=== PATIENT | male | born 1980 | race Caucasian/White ===

== ENCOUNTER 2019-02-09 02:24 | Emergency (ER) | payer SELFPAY ==
[2019-02-09] MEDS ORDERED: Morphine 2 MG/ML Syringe IVPUSH ONE (02:36)
[2019-02-09] MEDS ORDERED: Sodium Chloride 0.9% 2.5 ML Syringe FLUSH PRN (02:36)
[2019-02-09] MEDS ORDERED: Sodium Chloride 0.9% 1,000 ML IV ONE (02:36)
[2019-02-09] MEDS ORDERED: Ketorolac 30 MG/ML SDV IVPUSH ONE (02:36)
[2019-02-09] MEDS ORDERED: Sodium Chloride 0.9% 10 ML Syringe FLUSH PRN (02:36)
--- NOTE | 2019-02-09 02:42 | EDM.PDOC ---
ED HPI GENERAL MEDICAL PROBLEM - General Chief Complaint: Lower Extremity Injury/Pain Stated Complaint: PULLED MUSCLE Time Seen by Provider: 02/09/19 02:30 - History of Present Illness INITIAL COMMENTS - FREE TEXT/NARRATIVE: HISTORY AND PHYSICAL: History of present illness: The patient is a 38-year-old male with no stated medical history who says he was playing softball [employer] about 8 PM and he was running to first base when he felt a sudden pull in his right thigh area. He did not fall to the ground and in fact he said that did not even hurt very much and he continued playing the game until it was finished it was not until he went home that he noticed that his leg/I was getting swollen and he was getting more discomfort. As the night progressed he was having more significant discomfort and swelling and he did not take anything [id number] but he did try to place ice on it. The patient says that the pain is in the mid thigh area and it is not in the posterior thigh and it is not a bony pain but it feels like a bad pulled muscle. He has no bony knee leg ankle foot pain and no sensory changes or weakness in his leg. He is able to walk on it with a limp and there is discrete pain with that. He has no right hip pain no back pain and no other systemic complaints. The patient is on no anticoagulation therapy including aspirin Review of systems: As per history of present illness and below otherwise all systems reviewed and negative. Past medical history: As per history of present illness and as reviewed below otherwise noncontributory. Surgical history: As per history of present illness and as reviewed below otherwise noncontributory. Social history: No reported history of drug or alcohol abuse. Family history: As per history of present illness and as reviewed below otherwise noncontributory. Physical exam: General: Well-developed well-nourished man who is nontoxic and vital signs are noted by me HEENT: Atraumatic, normocephalic,, negative for conjunctival pallor or scleral icterus, mucous membranes moist, throat clear, neck supple, nontender, trachea midline. Lungs: Clear to auscultation, breath sounds equal bilaterally, chest nontender. Heart: S1S2, regular rhythm and subtly tachycardic rate on my evaluation and no overt murmurs Abdomen: Soft, nondistended, nontender. Negative for masses or hepatosplenomegaly. NABS Pelvis: Stable nontender. No lateral hip tenderness on the right Genitourinary: Deferred. Rectal: Deferred. Extremities: Atraumatic with full range of motion of all extremities with the exception of the right thigh area where there is discrete swelling to the quadriceps compartment in the medial and lateral areas with ecchymosis seen laterally and swelling noted in the prepatellar area of the knee. The medial compartment is soft without tenderness or gross swelling. There are no bony defects appreciated in the right lower extremity and patient can engage the hamstring without difficulty although there is discomfort in the anterior thigh and he can also engage the quadriceps albeit painful and slightly weaker. Dorsalis pedis and posterior tibial pulses are triphasic The legs are, negative for cords or calf pain. Neurovascular unremarkable. When I place the patient with legs dangling and passively flex and extend at the knee the patient says the pain is not significantly worse with either movement and it seems to be the same. Patient can straight leg rise on the right about 3 inches. Neuro: Awake, alert, oriented. Cranial nerves II through XII unremarkable. Cerebellum unremarkable. Motor and sensory unremarkable throughout. Exam nonfocal. Diagnostics: CBC CMP CPK x-ray of the right femur Therapeutics: IV fluids Toradol morphine crutches; knee immobilizer for comfort if patient chooses, [place] 0325: Case was discussed with Dr. Ware and she would like to see the patient this morning at 9 AM in our clinic. She agrees with no weightbearing and if the patient wants a knee immobilizer for comfort he can have one as he chooses. I will give the patient a [place] to go home and further pain management can be dictated by Dr. Ware. I've again stressed the need to ice and elevate until he has seen in the clinic and no weightbearing Impression: Right quadriceps injury Definitive disposition and diagnosis as appropriate pending reevaluation and review of above. right leg Pain Score (Numeric/FACES): 9 - Related Data Allergies Allergy/AdvReac Type Severity Reaction Status Date / Time No Known Allergies Allergy Verified 02/09/19 02:29 Home Meds: Home Meds . [No Known Home Meds] 02/09/19 [History] Past Medical History - Past Health History Medical/Surgical History: Denies Medical/Surgical History Cardiovascular History: Reports: None Respiratory History: Reports: None Gastrointestinal History: Reports: None Genitourinary History: Reports: None Musculoskeletal History: Reports: None Neurological History: Reports: None Psychiatric History: Reports: None Endocrine/Metabolic History: Reports: None Hematologic History: Reports: None Oncologic (Cancer) History: Reports: None Dermatologic History: Reports: None - Infectious Disease History Infectious Disease History: Reports: None Social & Family History - Family History Family Medical History: Noncontributory - Tobacco Use Smoking Status *Q: Current Every Day Smoker Years of Tobacco use: 20 Packs/Tins Daily: 1 - Recreational Drug Use Recreational Drug Use: No Review of Systems - Review of Systems Review Of Systems: ROS reveals no pertinent complaints other than HPI. ED EXAM, GENERAL - Physical Exam Exam: See Below (see dictation) Course - Vital Signs Last Recorded V/S: Last Vital Signs Temp 36.4 C 02/09/19 02:29 Pulse 88 02/09/19 03:21 Resp 18 02/09/19 03:21 BP 153/96 H 02/09/19 03:21 Pulse Ox 98 02/09/19 03:21 - Orders/Labs/Meds Orders: Active Orders 24 hr Category Date Time Status Femur Min 2V Rt [CR] Stat Exams 02/09/19 02:36 Taken Sodium Chloride 0.9% [Normal Saline] 1,000 ml Med 02/09/19 02:36 Active IV STAT Sodium Chloride 0.9% [Saline Flush] Med 02/09/19 02:36 Active 10 ml FLUSH ASDIRECTED PRN Sodium Chloride 0.9% [Saline Flush] Med 02/09/19 02:36 Active 2.5 ml FLUSH ASDIRECTED PRN DME for Discharge [COMM] Stat Oth 02/09/19 03:30 Ordered Saline Lock Insert [OM.PC] Stat Oth 02/09/19 02:35 Ordered Medication Orders Sodium Chloride (Normal Saline) 1,000 mls @ 999 mls/hr IV STAT ONE Stop: 02/09/19 03:36 Last Admin: 02/09/19 02:45 Dose: 999 mls/hr Sodium Chloride (Saline Flush) 10 ml FLUSH ASDIRECTED PRN PRN Reason: Keep Vein Open Sodium Chloride (Saline Flush) 2.5 ml FLUSH ASDIRECTED PRN PRN Reason: Keep Vein Open Labs: Laboratory Tests 02/09/19 02/09/19 Range/Units 02:35 02:35 WBC 13.26 H (4.0-11.0) K/uL RBC 4.01 L (4.50-5.90) M/uL Hgb 12.7 L (13.0-17.0) g/dL Hct 37.0 L (38.0-50.0) % MCV 92.3 (80.0-98.0) fL MCH 31.7 (27.0-32.0) pg MCHC 34.3 (31.0-37.0) g/dL RDW Std Deviation 42.5 (28.0-62.0) fl RDW Coeff of Rian 13 (11.0-15.0) % Plt Count 189 (150-400) K/uL MPV 9.40 (7.40-12.00) fL Neut % (Auto) 74.5 (48.0-80.0) % Lymph % (Auto) 17.6 (16.0-40.0) % [place] % (Auto) 7.4 (0.0-15.0) % Eos % (Auto) 0.3 (0.0-7.0) % Baso % (Auto) 0.2 (0.0-1.5) % Neut # (Auto) 9.9 H (1.4-5.7) K/uL Lymph # (Auto) 2.3 (0.6-2.4) K/uL [place] # (Auto) 1.0 H (0.0-0.8) K/uL Eos # (Auto) 0.0 (0.0-0.7) K/uL Baso # (Auto) 0.0 (0.0-0.1) K/uL Nucleated RBC % 0.0 /100WBC Nucleated RBCs # 0 K/uL Sodium 138 (136-148) mmol/L Potassium 3.4 L (3.5-5.1) mmol/L Chloride 101 (98-107) mmol/L Carbon Dioxide 25.5 (21.0-32.0) mmol/L BUN 20 H (7.0-18.0) mg/dL Creatinine 1.1 (0.8-1.3) mg/dL Est Cr Clr Drug Dosing 89.27 mL/min Estimated GFR (MDRD) > 60.0 ml/min Glucose 132 H (74-106) mg/dL Calcium 8.6 (8.5-10.1) mg/dL Total Bilirubin 0.7 (0.2-1.0) mg/dL AST 28 (15-37) IU/L ALT 44 (14-63) IU/L Alkaline Phosphatase 67 (46-116) U/L Creatine Kinase 337 H (26-308) U/L Total Protein 6.8 (6.4-8.2) g/dL Albumin 3.6 (3.4-5.0) g/dL Globulin 3.2 (2.6-4.0) g/dL Albumin/Globulin Ratio 1.1 (0.9-1.6) Meds: Medications Generic Name Dose Route Start Last Admin Trade Name Freq PRN Reason Stop Dose Admin Sodium Chloride 1,000 mls @ 999 mls/hr 02/09/19 02:36 02/09/19 02:45 Normal Saline IV 02/09/19 03:36 999 mls/hr STAT ONE Administration Sodium Chloride 10 ml 02/09/19 02:36 Saline Flush FLUSH ASDIRECTED PRN Keep Vein Open Sodium Chloride 2.5 ml 02/09/19 02:36 Saline Flush FLUSH ASDIRECTED PRN Keep Vein Open Discontinued Medications Generic Name Dose Route Start Last Admin Trade Name Freq PRN Reason Stop Dose Admin Ketorolac Tromethamine 30 mg 02/09/19 02:36 02/09/19 02:45 Toradol IVPUSH 02/09/19 02:37 30 mg ONETIME ONE Administration Morphine Sulfate 4 mg 02/09/19 02:36 02/09/19 02:47 Morphine IVPUSH 02/09/19 02:37 4 mg ONETIME ONE Administration Departure - Departure Time of Disposition: 03:32 Disposition: Home, Self-Care 01 Condition: Good Clinical Impression: Injury of quadriceps muscle - Discharge Information Referrals: PCP,None [Primary Care Provider] - Forms: ED Department Discharge Additional Instructions: The following information is given to patients seen in the emergency department who are being discharged to home. This information is to outline your options for follow-up care. We provide all patients seen in our emergency department with a follow-up referral. The need for follow-up, as well as the timing and circumstances, are variable depending upon the specifics of your emergency department visit. If you don't have a primary care physician on staff, we will provide you with a referral. We always advise you to contact your personal physician following an emergency department visit to inform them of the circumstance of the visit and for follow-up with them and/or the need for any referrals to a consulting specialist. The emergency department will also refer you to a specialist when appropriate. This referral assures that you have the opportunity for followup care with a specialist. All of these measure are taken in an effort to provide you with optimal care, which includes your followup. Under all circumstances we always encourage you to contact your private physician who remains a resource for coordinating your care. When calling for followup care, please make the office aware that this follow-up is from your recent emergency room visit. If for any reason you are refused follow-up, please contact the [facility] emergency department at and ask to speak to the emergency department charge nurse. [facility]--Orthopedic clinic Professional [address] [address] These use crutches and do not weight-bear until you're followed up in the clinic this morning. You have an appointment scheduled with Dr. Ware our orthopedic surgeon at 9 AM this morning. Please arrive 15 minutes early to complete registration. You have been given a pain pill before discharge and he may discuss with Dr. Ware further pain management going forward. Push hydration ice the leg and elevate as much as possible until you're seen in the clinic. Return to ER as needed and as discussed - My Orders Last 24 Hours: My Active Orders 02/09/19 02:35 Saline Lock Insert [OM.PC] Stat 02/09/19 02:36 Femur Min 2V Rt [CR] Stat Sodium Chloride 0.9% [Normal Saline] 1,000 ml IV STAT Sodium Chloride 0.9% [Saline Flush] 10 ml FLUSH ASDIRECTED PRN Sodium Chloride 0.9% [Saline Flush] 2.5 ml FLUSH ASDIRECTED PRN 02/09/19 03:30 DME for Discharge [COMM] Stat - Assessment/Plan Last 24 Hours: My Active Orders 02/09/19 02:35 Saline Lock Insert [OM.PC] Stat 02/09/19 02:36 Femur Min 2V Rt [CR] Stat Sodium Chloride 0.9% [Normal Saline] 1,000 ml IV STAT Sodium Chloride 0.9% [Saline Flush] 10 ml FLUSH ASDIRECTED PRN Sodium Chloride 0.9% [Saline Flush] 2.5 ml FLUSH ASDIRECTED PRN 02/09/19 03:30 DME for Discharge [COMM] Stat
[2019-02-09 03:06] LABS: CHLORIDE,CL 101 mmol/L (98-107); SODIUM,NA 138 mmol/L (136-148)
[2019-02-09] MEDS ORDERED: Acetaminophen/HYDROcodone 325-7.5 MG Tab PO ONE (03:34)
--- NOTE | 2019-02-09 10:10 | CR ---
EXAM DATE: 02/09/19 PATIENT'S AGE: 38 Patient: JARRET LOPEZ Facility: [facility] Site Site : 1980 Study: XRay-Extremity Right FEMUR [id number]/14/2019 3:23:35 AM Ordering Physician: CRISTO CABRERA Final Report: INDICATION: Trauma, pain and swelling right femur after softball game TECHNIQUE: Femur radiograph 2 views on 4 films right COMPARISON: None FINDINGS: Bone: No acute fractures or aggressive bone lesions are identified. Joint: The hip and visualized knee joints are unremarkable in appearance. No significant joint effusion is seen. Soft tissue: Unremarkable. No radiopaque foreign bodies are seen. IMPRESSION: 1. No acute osseous injuries or abnormalities are noted. Dictated by: Jorge Luis Churchill MD @ 02/09/2019 03:25:59 Signed by: Jorge Luis Churchill MD @02/09/2019 3:25:59 AM (Electronic Signature) Report Signed by Proxy. FILI
== END 2019-02-09 03:40 | disposition home or self-care (01) ==
LOC: MW.ED 02:24
DX: S76.191A Other specified injury of right quadriceps muscle, fascia and tendon, initial encounter (principal); S80.01XA Contusion of right knee, initial encounter; F17.210 Nicotine dependence, cigarettes, uncomplicated; W19.XXXA Unspecified fall, initial encounter; Y93.64 Activity, baseball
CPT/HCPCS: 36415; 73552; 80053; 82550; 85025; 96361; 96374; 96375; 99283; A9270; J1885; J2270; J7040